=== PATIENT | male | born 1955 | race Caucasian/White ===

== ENCOUNTER 2016-11-26 10:59 | Inpatient (IN) | payer BC ==
[2016-11-22 15:11] LABS: WBC (NOT ORDERED) (RFLEX) 0 (0-5)
[2016-11-22 15:50] LABS: BASOPHILS 0.2 %; BASOPHILS ABSOLUTE 0.01 10/3/uL (0.0-0.16); EOSINOPHILS 2.3 %; EOSINOPHILS ABSOLUTE 0.12 10/3/uL (0.0-0.53); HEMATOCRIT 40.2 % (40.0-51.0); HEMOGLOBIN 13.6 g/dL (13.6-17.8); IMMATURE GRANULOCYTES 0.2 %; IMMATURE GRANULOCYTES ABSOLUTE 0.01 10/3/uL (0.0-0.11); LYMPHOCYTES 37.3 %; LYMPHOCYTES ABSOLUTE 1.96 10/3/uL (0.67-4.30); MEAN CORPUS HGB CONC 33.8 g/dL (32.0-36.0); MEAN CORPUSCULAR HEMOGLOB 33.4 pg (26.0-34.0); MEAN CORPUSCULAR VOLUME 98.8 fL (80-100); MONOCYTES 10.1 %; MONOCYTES ABSOLUTE 0.53 10/3/uL (0.21-1.20); NEUTROPHILS 49.9 %; NEUTROPHILS ABSOLUTE 2.63 10/3/uL (2.02-8.40); PLATELET COUNT 90 10/3/uL (150-400); RBC DISTRIBUTION WIDTH 12.8 % (12.0-16.0); RED CELL COUNT 4.07 10/6/uL (4.7-6.1); WHITE BLOOD CELLS 5.3 10/3/uL (4.5-10.5)
[2016-11-22 15:51] LABS: MANUAL DIFF NO %
[2016-11-22 15:53] LABS: ASCORBIC ACID (UR NOT ORDER) NEG (NEG); BILIRUBIN, URINE NEGATIVE (NEG); KETONE, URINE NEGATIVE (NEG); LEUKOCYTE ESTERASE(NOT OR NEG (NEG)
[2016-11-22 15:57] LABS: BUN (BLOOD UREA NITROGEN) 13 MG/DL (6-23); CHLORIDE, SERUM 107 MMOL/L (96-112); CO2 (CARBON DIOXIDE) 32 MMOL/L (24-34); CREATININE 0.88 MG/DL (0.70-1.30); GFR AFRICAN AMERICAN 109 ML/MIN (>=60); GFR NON AFRICAN AMERICAN 94 ML/MIN (>=60); GLUCOSE, SERUM 148 MG/DL (60-99); POTASSIUM, SERUM 4.2 MMOL/L (3.5-5.3); SODIUM, SERUM 144 MMOL/L (135-148)
--- NOTE | ~2016-11-26 | OP ---
Record Of Operation [facility] [address] [place]. [address] NAME: EDGARD ORTIZ : 59 STATUS : ADM IN PAT#: [id number] AGE: 61 ADM/REG DATE : 11/26/16 MR#: [id number] REPORT SERV DATE: 11/26/16 DICTATED BY: CONRAD THOMAS DATE: 11/26/16 REPORT STATUS : Draft TRANSCRIBED BY: MODL DATE: 11/26/16 DATE OF PROCEDURE: 11/26/2016 PREOPERATIVE DIAGNOSIS: Severe right internal carotid artery stenosis. POSTOPERATIVE DIAGNOSIS: Severe right internal carotid artery stenosis. SURGERY PERFORMED: Right carotid endarterectomy with bovine patch angioplasty. SURGEON: Conrad Thomas M.D. SPORTS ANNOUNCER: Jillian. DESCRIPTION OF PROCEDURE: The patient was placed under general endotracheal anesthesia. The neck and chest were prepped and draped in a sterile fashion. An incision made along the anterior border of the sternocleidomastoid muscle and carried through the skin and subcutaneous tissue. The platysma was divided with the cautery unit, deep cervical fascia was opened. The facial vein doubly clamped, divided, and tied with 3-0 silk suture. Common carotid artery dissected from surrounding tissue and encircled with a vessel loop. The external and internal were dissected distally with the internal being also looped with a vessel loop. He was found to have some tortuosity of the internal carotid artery. The 12th nerve was seen and protected. He was given 5000 units of heparin. After an adequate period of time, the internal and external common carotid arteries were occluded. Arteriotomy made in the common and extended with the Mooney scissors through the bulb into the internal carotid artery. A #10 [place] shunt was placed without difficulty. Endarterectomy carried out with the [place] elevator. The proximal plaque was cut sharply, the external done as an eversion and the internal showed a relatively smooth step-off plaque interface. This was tacked down using interrupted 6-0 Prolene suture. The opening in the vessel once this was cleaned and irrigated with heparinized saline was closed using a bovine patch. This was sewn with running 6-0 Prolene suture. Before the patch completed, the shunt was removed, flushing carried out, patch completed, and suture tied. Flow initially released to the external and then to the internal carotid artery. Surgicel was placed over the patch. He was given 20 mg of protamine. A #7 IZABELLA drain was brought out inferiorly, sutured to the skin with 3-0 Vicryl. The wound was closed after adequate hemostasis noted with 2-0 and 3-0 Vicryl for the deep cervical fascia and platysma. Skin closed with 4-0 Monocryl subcuticular suture. Estimated blood loss approximately 100 mL. He awoke on the operating room table, moving all 4 extremities. The patient went to the recovery room in satisfactory condition. MG/MODL Conrad Thomas M.D. Record Of [address] [address] NAME: EDGARD ORTIZ : 59 STATUS : ADM IN [facility]#: [id number] AGE: 61 ADM/REG DATE : 11/26/16 MR#: [id number] REPORT SERV DATE: 11/26/16 DICTATED BY: CONRAD THOMAS DATE: 11/26/16 REPORT STATUS : Draft TRANSCRIBED BY: MODL DATE: 11/26/16 / [id number] CC: Conrad Thomas M.D.
[~2016-11-26 10:59] MED LIST: ALTA2.5 PO; ASAB PO; BETAPACE80 PO; CORDARONE PO; COZ25 PO; CRESTOR20 MG PO; CRESTOR5 MG PO; ELIQUIS 5 MG TAB5 MG PO; NITROQUICK0.4 MG SL; PLAVIX PO; PT DENIES HOME MEDS; TOPXL50 PO
[2016-11-27 11:13] LABS: CALCIUM, SERUM 8.7 MG/DL (8.5-10.4); CHLORIDE, SERUM 100 MMOL/L (96-112); CREATININE 1.08 MG/DL (0.70-1.30); GFR AFRICAN AMERICAN 87 ML/MIN (>=60); GFR NON AFRICAN AMERICAN 75 ML/MIN (>=60); POTASSIUM, SERUM 4.3 MMOL/L (3.5-5.3)
[2016-11-27 11:14] LABS: BUN (BLOOD UREA NITROGEN) 18 MG/DL (6-23); CO2 (CARBON DIOXIDE) 26 MMOL/L (24-34); GLUCOSE, SERUM 244 MG/DL (60-99); SODIUM, SERUM 135 MMOL/L (135-148)
[2016-11-27] MEDS ORDERED: T PO (11:46)
[2016-11-27] MEDS ORDERED: NITROQUICK0.4 MG SL (11:46)
[2016-11-27] MEDS ORDERED: ELIQUIS 5 MG TAB5 MG PO (11:47)
[2016-11-27] MEDS ORDERED: CRESTOR20 MG PO ×2 (11:48→11:49)
[2016-11-27] MEDS ORDERED: COZ25 PO (11:48)
[2016-11-27] MEDS ORDERED: PLAVIX PO (11:48)
[2016-11-27] MEDS ORDERED: SORINE80 MG PO (11:50)
[2016-11-27] MEDS ORDERED: PCET PO (11:51)
[2017-05-30] MEDS ORDERED: PLAVIX PO (15:40)
[2017-05-30] MEDS ORDERED: JARDI10T PO (15:43)
== END 2016-11-27 12:25 | disposition home or self-care (01) | DRG 39 ==
LOC: SDC/OF 10:59 → PACU 14:57 → CVICU 18:48
PROVIDERS: Surgery Vascular Surgery
PROC: 03UK0KZ Supplement Right Internal Carotid Artery with Nonautologous Tissue Substitute, Open Approach (ICD-10-PCS; 2016-11-26)
PROC: 03CK0ZZ Extirpation of Matter from Right Internal Carotid Artery, Open Approach (ICD-10-PCS; principal; 2016-11-26 11:45)
DX: I65.21 Occlusion and stenosis of right carotid artery (principal); D69.6 Thrombocytopenia, unspecified; E78.5 Hyperlipidemia, unspecified; I48.91 Unspecified atrial fibrillation; I71.4 Abdominal aortic aneurysm, without rupture; I25.2 Old myocardial infarction; I25.10 Atherosclerotic heart disease of native coronary artery without angina pectoris; Z95.5 Presence of coronary angioplasty implant and graft
CPT/HCPCS: 71020; 80048; 81001; 82962; 85025; 87641; 88304; 93005; A9270-GY; C1768; J0690; J2250; J2370; J2405; J2710; J2720; J3010

== ENCOUNTER 2016-12-17 08:36 | Inpatient (IN) | payer BC ==
[2016-12-13 14:39] LABS: BASOPHILS 0.5 %; BASOPHILS ABSOLUTE 0.03 10/3/uL (0.0-0.16); EOSINOPHILS 2.2 %; EOSINOPHILS ABSOLUTE 0.12 10/3/uL (0.0-0.53); HEMATOCRIT 39.7 % (40.0-51.0); HEMOGLOBIN 13.9 g/dL (13.6-17.8); IMMATURE GRANULOCYTES 0.2 %; IMMATURE GRANULOCYTES ABSOLUTE 0.01 10/3/uL (0.0-0.11); LYMPHOCYTES 37.6 %; LYMPHOCYTES ABSOLUTE 2.07 10/3/uL (0.67-4.30); MANUAL DIFF NO %; MEAN CORPUSCULAR HEMOGLOB 34.2 pg (26.0-34.0); MEAN CORPUSCULAR VOLUME 97.8 fL (80-100); MEAN PLATELET VOLUME 9.7 fL (9.2-13.0); MONOCYTES 7.6 %; MONOCYTES ABSOLUTE 0.42 10/3/uL (0.21-1.20); NEUTROPHILS 51.9 %; NEUTROPHILS ABSOLUTE 2.85 10/3/uL (2.02-8.40); PLATELET COUNT 138 10/3/uL (150-400); RBC DISTRIBUTION WIDTH 12.5 % (12.0-16.0); RED CELL COUNT 4.06 10/6/uL (4.7-6.1); WHITE BLOOD CELLS 5.5 10/3/uL (4.5-10.5)
[2016-12-13 14:57] LABS: CALCIUM, SERUM 8.7 MG/DL (8.5-10.4); CHLORIDE, SERUM 106 MMOL/L (96-112); CO2 (CARBON DIOXIDE) 27 MMOL/L (24-34); CREATININE 0.96 MG/DL (0.70-1.30); GFR AFRICAN AMERICAN 100 ML/MIN (>=60); GFR NON AFRICAN AMERICAN 86 ML/MIN (>=60); POTASSIUM, SERUM 4.1 MMOL/L (3.5-5.3); SODIUM, SERUM 141 MMOL/L (135-148)
[2016-12-13 14:58] LABS: BUN (BLOOD UREA NITROGEN) 23 MG/DL (6-23); GLUCOSE, SERUM 192 MG/DL (60-99)
[2016-12-13 15:18] LABS: ASCORBIC ACID (UR NOT ORDER) NEG (NEG); BILIRUBIN, URINE NEGATIVE (NEG); KETONE, URINE NEGATIVE (NEG); LEUKOCYTE ESTERASE(NOT OR NEG (NEG); WBC (NOT ORDERED) (RFLEX) 1 (0-5)
--- NOTE | ~2016-12-17 | OP ---
Record Of Operation [facility] [address] [place]. [address] NAME: EDGARD ORTIZ : 59 STATUS : ADM IN PAT#: [id number] AGE: 61 ADM/REG DATE : 12/17/16 MR#: [id number] REPORT SERV DATE: 12/17/16 DICTATED BY: CONRAD THOMAS DATE: 12/17/16 REPORT STATUS : Draft TRANSCRIBED BY: MODL DATE: 12/17/16 DATE OF PROCEDURE: 12/17/2016 PREOPERATIVE DIAGNOSES: 1. Abdominal aortic aneurysm. 2. Large right common iliac aneurysm. POSTOPERATIVE DIAGNOSES: 1. Abdominal aortic aneurysm. 2. Large right common iliac aneurysm. SURGERY PERFORMED: 1. Endograft replacement of abdominal aortic aneurysm with the main trunk being a 31 x 14.5 x 13 cm. 2. Extension of the left common iliac artery with a 27 mm cuff, which was 12 cm long. 3. Bifurcated right common iliac aneurysm graft using a 23 x 14.5 x 10 with the internal iliac extension being a 14.5 x 7 cm in length. The connecting graft between the main body and the bifurcated iliac graft being a 27 x 14 cm in length. SURGEON: Conrad Thomas M.D. LEATHER GOODS MAKER: Ashlyn García DO DESCRIPTION OF PROCEDURE: The patient was placed under IV sedation. Both groins were prepped and draped in a sterile fashion. Both femoral arteries were cannulated with ultrasound direction. Needle wire and sheath were placed. Two ProGlide closures were used on both sides. As this was completed, he was given 5000 units of heparin. A 16 sheath on the left and an 18 sheath on the right was eventually placed in the common femoral artery. A wire was then manipulated up and over the bifurcation for placement of the iliac bifurcated graft. This was placed into position, partially deployed and this was a 23 x 14.5 x 10 down to the contra gate opening. A sheath then placed up and over the bifurcation for the through wire and the internal iliac was then cannulated with a darinel catheter and a Glidewire and then this was exchanged for an Amplatz. The internal iliac portion was then brought into position. The graft was then deployed and this was 14.5 x 7 cm in length. This was deployed without difficulty having now finished the common iliac bifurcated graft. At this point in time, the main body was then placed up the left side. A limited aortogram done showing the level of the renal arteries. The main graft was deployed down to the contra limb, this was a 31 x 14.5 x 13 cm. The contra limb was then cannulated. The graft to bridge between the contra limb and the iliac bifurcated graft was in place, this was a 14 cm length and 27 mm in diameter. This was after the contra gate had been cannulated. This was then deployed. The ipsilateral gate was then deployed and then an extension placed in the ipsilateral limb, this is a 27 mm graft which was 12 cm long taken down to just above the internal iliac vessels. Retrograde angiograms were done on both sides to ensure the internal iliacs were patent. When the last Endo cuff on the left side was placed to release the extension of the left iliac limb, all the graft areas were then ballooned at the both attachment sites and all of the overlapping sites. Two aortograms were done, first showing Record Of Operation [address] [address] NAME: EDGARD ORTIZ : 59 STATUS : ADM IN [facility]#: [id number] AGE: 61 ADM/REG DATE : 12/17/16 MR#: [id number] REPORT SERV DATE: 12/17/16 DICTATED BY: CONRAD THOMAS DATE: 12/17/16 REPORT STATUS : Draft TRANSCRIBED BY: JAYCOB DATE: 12/17/16 a minor leak at the junction between the right limb extension and the trunk of the graft. After ballooning this again, the final film showing good flow through the graft. Both renal arteries were patent. Both internal iliac vessels filled. There were no significant endoleaks, although a late II was noted in the mid lumbar area. When this was completed, both sheaths were removed. The ProGlides were then deployed and hemostasis was achieved. Dry dressing was then applied to both groins. Estimated blood loss was 100 mL. He was stable during the operation and went to the recovery room in satisfactory condition. /JAYCOB Conrad Thomas M.D. / [id number] CC: Conrad Thomas M.D.
[~2016-12-17 08:36] MED LIST changes: +PCET PO; +SORINE80 MG PO; +T PO
[2016-12-18 04:07] LABS: BASOPHILS 0.1 %; BASOPHILS ABSOLUTE 0.01 10/3/uL (0.0-0.16); EOSINOPHILS 0 %; HEMATOCRIT 36.8 % (40.0-51.0); HEMOGLOBIN 12.9 g/dL (13.6-17.8); IMMATURE GRANULOCYTES 0.1 %; IMMATURE GRANULOCYTES ABSOLUTE 0.01 10/3/uL (0.0-0.11); LYMPHOCYTES 14.9 %; LYMPHOCYTES ABSOLUTE 1.48 10/3/uL (0.67-4.30); MEAN CORPUS HGB CONC 35.1 g/dL (32.0-36.0); MEAN CORPUSCULAR HEMOGLOB 34.1 pg (26.0-34.0); MEAN CORPUSCULAR VOLUME 97.4 fL (80-100); MEAN PLATELET VOLUME 10.8 fL (9.2-13.0); MONOCYTES 8.1 %; MONOCYTES ABSOLUTE 0.81 10/3/uL (0.21-1.20); NEUTROPHILS 76.8 %; NEUTROPHILS ABSOLUTE 7.63 10/3/uL (2.02-8.40); RBC DISTRIBUTION WIDTH 12.4 % (12.0-16.0); RED CELL COUNT 3.78 10/6/uL (4.7-6.1)
[2016-12-18 04:14] LABS: PLATELET COUNT 59 10/3/uL (150-400); WHITE BLOOD CELLS 9.9 10/3/uL (4.5-10.5)
[2016-12-18 04:17] LABS: CALCIUM, SERUM 8.7 MG/DL (8.5-10.4); CHLORIDE, SERUM 105 MMOL/L (96-112); CO2 (CARBON DIOXIDE) 27 MMOL/L (24-34); CREATININE 0.97 MG/DL (0.70-1.30); GFR AFRICAN AMERICAN 99 ML/MIN (>=60); GFR NON AFRICAN AMERICAN 85 ML/MIN (>=60); MANUAL DIFF NO %; POTASSIUM, SERUM 4.4 MMOL/L (3.5-5.3); SODIUM, SERUM 140 MMOL/L (135-148)
[2016-12-18 04:42] LABS: BUN (BLOOD UREA NITROGEN) 15 MG/DL (6-23); GLUCOSE, SERUM 242 MG/DL (60-99)
[2016-12-18 05:01] LABS: PLATELET ESTIMATE SLT DEC (ADEQUATE)
[2016-12-18] MEDS ORDERED: PCET PO (09:54)
[2017-05-30] MEDS ORDERED: PLAVIX PO (15:40)
[2017-05-30] MEDS ORDERED: JARDI10T PO (15:43)
== END 2016-12-18 13:00 | disposition home or self-care (01) | DRG 269 ==
LOC: SDC/OF 08:36 → CVICU 13:58
PROVIDERS: Surgery Vascular Surgery
PROC: 04V03DZ Restriction of Abdominal Aorta with Intraluminal Device, Percutaneous Approach (ICD-10-PCS; principal; 2016-12-17 10:15)
DX: I71.4 Abdominal aortic aneurysm, without rupture (principal); I72.3 Aneurysm of iliac artery; Z79.899 Other long term (current) drug therapy; Z79.02 Long term (current) use of antithrombotics/antiplatelets; Z98.890 Other specified postprocedural states; I10 Essential (primary) hypertension; E11.9 Type 2 diabetes mellitus without complications; I25.10 Atherosclerotic heart disease of native coronary artery without angina pectoris; Z95.1 Presence of aortocoronary bypass graft; I25.2 Old myocardial infarction
CPT/HCPCS: 34802; 34900; 36200; 36246; 71020; 75952; 75954; 80048; 81001; 82962; 85025; A9270-GY; C1725; C1751; C1760; C1769; C1776; C1874; C1876; C1887; C1893; C1894; J0690; J2250; J2370; J2405; J2710; J3010; Q9966

== ENCOUNTER 2017-06-03 08:36 | Observation (INO) | payer BC ==
[2017-05-30 09:58] LABS: BASOPHILS 0.2 %; BASOPHILS ABSOLUTE 0.01 10/3/uL (0.0-0.16); EOSINOPHILS 1.9 %; EOSINOPHILS ABSOLUTE 0.08 10/3/uL (0.0-0.53); HEMATOCRIT 43.3 % (40.0-51.0); HEMOGLOBIN 14.7 g/dL (13.6-17.8); LYMPHOCYTES 36.1 %; LYMPHOCYTES ABSOLUTE 1.53 10/3/uL (0.67-4.30); MEAN CORPUS HGB CONC 33.9 g/dL (32.0-36.0); MEAN CORPUSCULAR HEMOGLOB 33.3 pg (26.0-34.0); MEAN PLATELET VOLUME 11.8 fL (9.2-13.0); MONOCYTES 10.4 %; MONOCYTES ABSOLUTE 0.44 10/3/uL (0.21-1.20); NEUTROPHILS 51.4 %; NEUTROPHILS ABSOLUTE 2.18 10/3/uL (2.02-8.40); RBC DISTRIBUTION WIDTH 13.3 % (12.0-16.0); RED CELL COUNT 4.42 10/6/uL (4.7-6.1); WHITE BLOOD CELLS 4.2 10/3/uL (4.5-10.5)
[2017-05-30 10:00] LABS: MANUAL DIFF NO %; PLATELET COUNT 68 10/3/uL (150-400)
[2017-05-30 10:18] LABS: BUN (BLOOD UREA NITROGEN) 13 MG/DL (6-23); CALCIUM, SERUM 9.2 MG/DL (8.5-10.4); CHLORIDE, SERUM 103 MMOL/L (96-112); CO2 (CARBON DIOXIDE) 31 MMOL/L (24-34); CREATININE 0.82 MG/DL (0.70-1.30); GFR AFRICAN AMERICAN 111 ML/MIN (>=60); GFR NON AFRICAN AMERICAN 96 ML/MIN (>=60); POTASSIUM, SERUM 4.1 MMOL/L (3.5-5.3); SODIUM, SERUM 140 MMOL/L (135-148)
[2017-05-30 10:19] LABS: GLUCOSE, SERUM 123 MG/DL (60-99)
[2017-05-30 10:38] LABS: PLATELET ESTIMATE DEC (ADEQUATE); RBC MORPHOLOGY NORM (NORMAL)
[~2017-06-03] VITALS: Ht 188 cm; Wt 92.6 kg
--- NOTE | ~2017-06-03 | OP ---
Record Of Operation [facility] [address] [place]. [address] NAME: EDGARD ORTIZ : 59 STATUS : ADM Javier PAT#: [id number] AGE: 62 ADM/REG DATE : 06/03/17 MR#: [id number] REPORT SERV DATE: 06/04/17 DICTATED BY: CONRAD JASSO DATE: 06/03/17 REPORT STATUS : Draft TRANSCRIBED BY: MODL DATE: 06/03/17 DATE OF PROCEDURE: 06/03/2017 PREOPERATIVE DIAGNOSIS: Status post endograft for abdominal aortic aneurysm with endoleak and expansion of aneurysm. POSTOPERATIVE DIAGNOSES: 1. Type 2 endoleak coming from the left internal iliac artery. 2. Left circumflex femoral artery. SURGERY PERFORMED: 1. Aortogram. 2. Selected arteriogram of the left internal iliac artery. 3. Coil embolization of ascending branch of the left internal iliac artery. 4. Stenting of the external iliac artery using an 8 x 5 Viabahn stent. DESCRIPTION OF PROCEDURE: Patient placed under IV sedation, right femoral artery initially cannulated with ultrasound direction. Needle, wire, and sheath were placed. The UF catheter placed above his previously placed endograft for his aneurysm. Aortogram done showing both the proximal and distal attachments, showing that the endograft was in good position, there was no evidence of type 1 endoleak. There was evidence of what appeared to be an ascending branch of the left internal iliac feeding back up toward the aneurysm. With this finding, a second sheath placed into the left femoral artery again using ultrasound direction, retrograde angiogram of the left iliac showing this vessel coming off the internal and extending toward the aneurysm sac. There was also an area of the circumflex femoral that also was extending toward the aneurysm sac. With this finding, a UF was used to manipulate a wire down into the internal left side. I then used a darinel catheter. This was then manipulated out into a secondary branch coming off the internal, which was where the larger of the vessels feeding back toward the aneurysm was noted. With some difficulty, multiple angle views, the branch was able to be cannulated. The one cannulated was more medial and this was coiled with a 3 x 6 coil. The second more larger branch was coming off one of the larger branches off the internal, was a secondary branch, and was able to cannulate this successfully. Therefore, the larger of the two branches coming off the internal was coiled. This was coiled using larger coils. These were 10 x 5 and 10 x 2 coils. This was done to the orifice of the ascending branch was coiled. Some of this extended down into the internal iliac, but there was still flow noted in the internal iliac. When this was completed, the second area what appeared to be feeding the aneurysm was down close to the very proximal common femoral where there was an ascending collateral coming off around the circumflex femoral. Multiple attempts were used to cannulate this. This was unsuccessful due to the steep angle of the takeoff. Because of this persistent filling back toward the aneurysm, we decided to stent this external iliac with a covered stent in order to prohibit flow into the ascending branch. A 7 sheath was placed and 8 x 5 Viabahn placed across the vessel and then this was ballooned. There were still some flow outside the stent into the collateral, but this was relatively minimal. A balloon was used to balloon the stent to a maximum diameter still noticing a small amount of endoleak around the graft. Rather than placing a second graft, we decided to stop at this point in time. An Angio-Seal Record Of Operation [address] [place]. [address] NAME: EDGARD ORTIZ : 59 STATUS : ADM Javier PAT#: [id number] AGE: 62 ADM/REG DATE : 06/03/17 MR#: [id number] REPORT SERV DATE: 06/04/17 DICTATED BY: CONRAD JASSO DATE: 06/03/17 REPORT STATUS : Draft TRANSCRIBED BY: MODL DATE: 06/03/17 was used to close the 7 sheath sticks on the left and also used an Angio-Seal for the 5 sheath on the right. Dry dressings were applied. He did have a left femoral area hematoma that was stable at the termination of the procedure. Estimated blood loss was 50 mL. He was in stable condition, went to the recovery room in good condition. MG/MODL Conrad Jasso M.D. / [id number] CC: Conrad Jasso M.D.
[~2017-06-03 08:36] MED LIST changes: +JARDI10T PO
[2017-06-04 05:39] LABS: BASOPHILS 0.2 %; BASOPHILS ABSOLUTE 0.01 10/3/uL (0.0-0.16); EOSINOPHILS 1.8 %; EOSINOPHILS ABSOLUTE 0.11 10/3/uL (0.0-0.53); HEMOGLOBIN 13.9 g/dL (13.6-17.8); IMMATURE GRANULOCYTES 0.3 %; IMMATURE GRANULOCYTES ABSOLUTE 0.02 10/3/uL (0.0-0.11); LYMPHOCYTES 25.1 %; LYMPHOCYTES ABSOLUTE 1.52 10/3/uL (0.67-4.30); MANUAL DIFF NO %; MEAN CORPUS HGB CONC 33.9 g/dL (32.0-36.0); MEAN CORPUSCULAR VOLUME 97.4 fL (80-100); MEAN PLATELET VOLUME 10.7 fL (9.2-13.0); MONOCYTES 10.7 %; MONOCYTES ABSOLUTE 0.65 10/3/uL (0.21-1.20); NEUTROPHILS 61.9 %; NEUTROPHILS ABSOLUTE 3.75 10/3/uL (2.02-8.40); PLATELET COUNT 83 10/3/uL (150-400); RBC DISTRIBUTION WIDTH 13.2 % (12.0-16.0); RED CELL COUNT 4.21 10/6/uL (4.7-6.1); WHITE BLOOD CELLS 6.1 10/3/uL (4.5-10.5)
== END 2017-06-04 09:58 | disposition home or self-care (01) ==
LOC: ENRESERVDT → ENRESERV → ENRESERVTM → SDC 08:36 → SDC/OF 13:00 → 2SO 14:56
PROVIDERS: Surgery Vascular Surgery
PROC: 047J3DZ Dilation of Left External Iliac Artery with Intraluminal Device, Percutaneous Approach (ICD-10-PCS; principal; 2017-06-03 09:45)
PROC: 04LF3DZ Occlusion of Left Internal Iliac Artery with Intraluminal Device, Percutaneous Approach (ICD-10-PCS; 2017-06-03 09:45)
DX: T82.898A Other specified complication of vascular prosthetic devices, implants and grafts, initial encounter (principal); I65.23 Occlusion and stenosis of bilateral carotid arteries; I71.4 Abdominal aortic aneurysm, without rupture; I72.3 Aneurysm of iliac artery; I10 Essential (primary) hypertension; E78.00 Pure hypercholesterolemia, unspecified; I25.2 Old myocardial infarction; I25.10 Atherosclerotic heart disease of native coronary artery without angina pectoris; I73.9 Peripheral vascular disease, unspecified; Z98.890 Other specified postprocedural states; Z79.02 Long term (current) use of antithrombotics/antiplatelets; Z79.899 Other long term (current) drug therapy
CPT/HCPCS: 36200; 37221; 37242; 75625; 80048; 82962; 85025; 85049; 93005; A9270-GY; C1725; C1751; C1760; C1769; C1874; C1884; C1894; G0378; J0690; J2250; J2370; J2405; J3010; Q9967